=== PATIENT | male | born 1960 | race African-American/Black ===

== ENCOUNTER 2021-06-10 14:17 | Inpatient (IN) | payer OTHER ==
[2021-06-10 17:25] VITALS: BMI 30.7
[2021-06-10] MEDS ORDERED: MAG HYDROX/AL HYDROX/SIMETH 30 ML UNIT-DOSE CUP PO PRN (17:50)
[2021-06-10] MEDS ORDERED: ACETAMINOPHEN 325 MG TABLET (FP) PO PRN (17:50)
[2021-06-10] MEDS ORDERED: guaiFENesin 200 MG/10 ML 10 ML UNIT-DOSE CUPS PO PRN (17:50)
[2021-06-10] MEDS ORDERED: P-EPHED 60MG/TRIPROLIDI 2.5MG TABLET PO PRN (17:50)
[2021-06-10] MEDS ORDERED: IBUPROFEN 400 MG TABLET (FP) PO PRN (17:50)
[2021-06-10] MEDS ORDERED: MAGNESIUM HYDROX 2400MG/30ML ORAL SUSPENSION 30 ML CUP PO PRN (17:50)
[2021-06-10] MEDS ORDERED: LOPERAMIDE HCL 2 MG CAPSULE PO PRN (17:50)
[2021-06-10] MEDS ORDERED: MAGNESIUM CITRATE 300 ML BOTTLE PO PRN (17:50)
[2021-06-10] MEDS: THIAMINE HCL 100 MG TABLET (FP) PO SCH (21:10)
[2021-06-10] MEDS: MELATONIN 5 MG TABLETS PO SCH (21:15)
[2021-06-11] MEDS: NICOTINE 7 MG/24 HOURS TOPICAL PATCH TD SCH (09:55)
[2021-06-11] MEDS: PRENATAL VITAMINS W/ FOLIC ACID TABLET (FP) PO SCH (09:55)
[2021-06-11 10:38] LABS: CALCIUM 8.8 mg/dL (8.5-10.1)
[2021-06-11 10:42] LABS: CREATININE 1.1 mg/dL (0.55-1.3)
[2021-06-11 10:43] LABS: TOT PROT 6.6 g/dl (6.4-8.2)
[2021-06-11 10:47] LABS: HEMATOCRIT 38.3 % (35.4-49); HEMOGLOBIN 12.8 GM/dL (11.7-16.9); MCHC 33.3 g/dl (32.0-35.9); MEAN CELL VOLUME 89.8 fl (80-96); MEAN PLT VOLUME 8.7 fl (7.5-11.1); PLATELET COUNT 193 10^3/uL (134-434); RBC 4.27 M/mm3 (4.00-5.60); RDW 13.2 % (11.9-15.9)
[2021-06-11 10:49] LABS: BILIRUBIN,TOTAL 0.6 mg/dL (0.2-1)
[2021-06-11 12:14] LABS: SYPHILIS W/ RPR CONF NON-REACTIVE (NONREACTIVE)
[2021-06-11] MEDS: MELATONIN 5 MG TABLETS PO SCH (21:20)
[2021-06-11] MEDS: THIAMINE HCL 100 MG TABLET (FP) PO SCH (21:21)
[2021-06-12] MEDS ORDERED: TESTOSTERONE TD SCH (10:00)
[2021-06-12] MEDS: NICOTINE 7 MG/24 HOURS TOPICAL PATCH TD SCH (10:01)
[2021-06-12] MEDS: PRENATAL VITAMINS W/ FOLIC ACID TABLET (FP) PO SCH (10:01)
[2021-06-12] MEDS: THIAMINE HCL 100 MG TABLET (FP) PO SCH (21:23)
[2021-06-12] MEDS: MELATONIN 5 MG TABLETS PO SCH (21:24)
[2021-06-13] MEDS: NICOTINE 7 MG/24 HOURS TOPICAL PATCH TD SCH (09:49)
[2021-06-13] MEDS: PRENATAL VITAMINS W/ FOLIC ACID TABLET (FP) PO SCH (09:49)
[2021-06-13 15:52] LABS: PH,URINE 6.5 (5.0-8.0); URINE APPEARANCE CLEAR; URINE BILIRUBIN NEGATIVE (NEGATIVE); URINE COLOR YELLOW; URINE GLUCOSE (UA) NEGATIVE (NEGATIVE); URINE KETONE NEGATIVE (NEGATIVE); URINE LEUK ESTERASE NEGATIVE (NEGATIVE); URINE NITRITE NEGATIVE (NEGATIVE); URINE PROTEIN NEGATIVE (NEGATIVE)
[2021-06-13] MEDS: TESTOSTERONE TD SCH (16:01)
[2021-06-13] MEDS: hydrOXYzine PAMOATE 25 MG CAPSULE (FP) PO PRN (21:30)
[2021-06-13] MEDS: THIAMINE HCL 100 MG TABLET (FP) PO SCH (21:30)
[2021-06-13] MEDS: MELATONIN 5 MG TABLETS PO SCH (21:30)
[2021-06-14] MEDS: PRENATAL VITAMINS W/ FOLIC ACID TABLET (FP) PO SCH (09:57)
[2021-06-14] MEDS: NICOTINE 7 MG/24 HOURS TOPICAL PATCH TD SCH (09:58)
[2021-06-14] MEDS: TESTOSTERONE TD SCH (15:17)
[2021-06-14] MEDS: THIAMINE HCL 100 MG TABLET (FP) PO SCH (22:39)
[2021-06-14] MEDS: MELATONIN 5 MG TABLETS PO SCH (22:39)
[2021-06-15] MEDS: NICOTINE 7 MG/24 HOURS TOPICAL PATCH TD SCH (09:44)
[2021-06-15] MEDS: PRENATAL VITAMINS W/ FOLIC ACID TABLET (FP) PO SCH (09:44)
[2021-06-15] MEDS: TESTOSTERONE TD SCH (14:29)
[2021-06-15] MEDS: MELATONIN 5 MG TABLETS PO SCH (21:15)
[2021-06-15] MEDS: THIAMINE HCL 100 MG TABLET (FP) PO SCH (21:15)
[2021-06-15] MEDS: hydrOXYzine PAMOATE 25 MG CAPSULE (FP) PO PRN (21:15)
[2021-06-16] MEDS: PRENATAL VITAMINS W/ FOLIC ACID TABLET (FP) PO SCH (10:00)
[2021-06-16] MEDS: NICOTINE 7 MG/24 HOURS TOPICAL PATCH TD SCH (10:01)
[2021-06-16] MEDS: TESTOSTERONE TD SCH (10:01)
[2021-06-16] MEDS: THIAMINE HCL 100 MG TABLET (FP) PO SCH (21:54)
[2021-06-16] MEDS: MELATONIN 5 MG TABLETS PO SCH (21:54)
[2021-06-17] MEDS ORDERED: PT OWN MED DRAWER 7, Y5N ONE (09:03)
[2021-06-17] MEDS ORDERED: MASKS NR ONE (09:04)
[2021-06-17] MEDS: PRENATAL VITAMINS W/ FOLIC ACID TABLET (FP) PO SCH (10:08)
[2021-06-17] MEDS: TESTOSTERONE TD SCH (10:08)
[2021-06-17] MEDS: NICOTINE 7 MG/24 HOURS TOPICAL PATCH TD SCH (10:08)
[2021-06-17] MEDS: THIAMINE HCL 100 MG TABLET (FP) PO SCH (21:31)
[2021-06-17] MEDS: MELATONIN 5 MG TABLETS PO SCH (21:31)
[2021-06-18] MEDS: PRENATAL VITAMINS W/ FOLIC ACID TABLET (FP) PO SCH (10:03)
[2021-06-18] MEDS: NICOTINE 7 MG/24 HOURS TOPICAL PATCH TD SCH (10:03)
[2021-06-18] MEDS: TESTOSTERONE TD SCH (10:03)
[2021-06-18] MEDS: MELATONIN 5 MG TABLETS PO SCH (21:29)
[2021-06-18] MEDS: THIAMINE HCL 100 MG TABLET (FP) PO SCH (21:29)
[2021-06-19] MEDS: TESTOSTERONE TD SCH (09:28)
[2021-06-19] MEDS: PRENATAL VITAMINS W/ FOLIC ACID TABLET (FP) PO SCH (09:28)
[2021-06-19] MEDS: NICOTINE 10 MG CARTRIDGE (INHALER) IH PRN (09:29)
[2021-06-19] MEDS: NICOTINE 7 MG/24 HOURS TOPICAL PATCH TD SCH (09:30)
[2021-06-19] MEDS: THIAMINE HCL 100 MG TABLET (FP) PO SCH (22:20)
[2021-06-19] MEDS: MELATONIN 5 MG TABLETS PO SCH (22:20)
[2021-06-20] MEDS: PRENATAL VITAMINS W/ FOLIC ACID TABLET (FP) PO SCH (09:29)
[2021-06-20] MEDS: TESTOSTERONE TD SCH (09:29)
[2021-06-20] MEDS: NICOTINE 7 MG/24 HOURS TOPICAL PATCH TD SCH (09:29)
[2021-06-20] MEDS: MELATONIN 5 MG TABLETS PO SCH (21:04)
[2021-06-20] MEDS: THIAMINE HCL 100 MG TABLET (FP) PO SCH (21:04)
[2021-06-21] MEDS: NICOTINE 10 MG CARTRIDGE (INHALER) IH PRN (09:50)
[2021-06-21] MEDS: PRENATAL VITAMINS W/ FOLIC ACID TABLET (FP) PO SCH (09:50)
[2021-06-21] MEDS: TESTOSTERONE TD SCH (09:50)
[2021-06-21] MEDS: NICOTINE 7 MG/24 HOURS TOPICAL PATCH TD SCH (09:51)
[2021-06-21] MEDS: MELATONIN 5 MG TABLETS PO SCH (21:24)
[2021-06-21] MEDS: THIAMINE HCL 100 MG TABLET (FP) PO SCH (21:24)
[2021-06-22] MEDS: NICOTINE 7 MG/24 HOURS TOPICAL PATCH TD SCH (09:39)
[2021-06-22] MEDS: PRENATAL VITAMINS W/ FOLIC ACID TABLET (FP) PO SCH (09:39)
[2021-06-22] MEDS: TESTOSTERONE TD SCH (09:39)
[2021-06-22] MEDS: THIAMINE HCL 100 MG TABLET (FP) PO SCH (22:09)
[2021-06-22] MEDS: MELATONIN 5 MG TABLETS PO SCH (22:09)
[2021-06-23] MEDS: NICOTINE 10 MG CARTRIDGE (INHALER) IH PRN (08:51)
[2021-06-23] MEDS: TESTOSTERONE TD SCH (10:29)
[2021-06-23] MEDS: PRENATAL VITAMINS W/ FOLIC ACID TABLET (FP) PO SCH (10:29)
[2021-06-23] MEDS: NICOTINE 7 MG/24 HOURS TOPICAL PATCH TD SCH (10:30)
[2021-06-23] MEDS: MELATONIN 5 MG TABLETS PO SCH (21:41)
[2021-06-23] MEDS: THIAMINE HCL 100 MG TABLET (FP) PO SCH (21:41)
[2021-06-24] MEDS: NICOTINE 10 MG CARTRIDGE (INHALER) IH PRN (09:52)
[2021-06-24] MEDS: TESTOSTERONE TD SCH (09:52)
[2021-06-24] MEDS: PRENATAL VITAMINS W/ FOLIC ACID TABLET (FP) PO SCH (09:52)
[2021-06-24] MEDS: NICOTINE 7 MG/24 HOURS TOPICAL PATCH TD SCH (09:52)
[2021-06-24] MEDS: MELATONIN 5 MG TABLETS PO SCH (21:12)
[2021-06-24] MEDS ORDERED: PT OWN MED DRAWER 7, Y5N ONE (21:13)
[2021-06-24] MEDS: THIAMINE HCL 100 MG TABLET (FP) PO SCH (21:13)
[2021-06-24] MEDS: COLLOIDAL OATMEAL 1 BAR EACH TP PRN (21:14)
[2021-06-25] MEDS ORDERED: PT OWN MED DRAWER 7, Y5N ONE (08:54)
[2021-06-25] MEDS: TESTOSTERONE TD SCH (10:23)
[2021-06-25] MEDS: PRENATAL VITAMINS W/ FOLIC ACID TABLET (FP) PO SCH (10:24)
[2021-06-25] MEDS: NICOTINE 10 MG CARTRIDGE (INHALER) IH PRN (10:24)
[2021-06-25] MEDS: NICOTINE 7 MG/24 HOURS TOPICAL PATCH TD SCH (10:24)
[2021-06-25] MEDS: THIAMINE HCL 100 MG TABLET (FP) PO SCH (21:22)
[2021-06-25] MEDS: MELATONIN 5 MG TABLETS PO SCH (21:22)
[2021-06-26] MEDS: TESTOSTERONE TD SCH (09:45)
[2021-06-26] MEDS: PRENATAL VITAMINS W/ FOLIC ACID TABLET (FP) PO SCH (09:45)
[2021-06-26] MEDS: NICOTINE 7 MG/24 HOURS TOPICAL PATCH TD SCH (09:45)
[2021-06-26] MEDS: NICOTINE 10 MG CARTRIDGE (INHALER) IH PRN (09:46)
[2021-06-26] MEDS: MELATONIN 5 MG TABLETS PO SCH (21:41)
[2021-06-26] MEDS: THIAMINE HCL 100 MG TABLET (FP) PO SCH (21:42)
[2021-06-27] MEDS: NICOTINE 7 MG/24 HOURS TOPICAL PATCH TD SCH (10:01)
[2021-06-27] MEDS: TESTOSTERONE TD SCH (10:01)
[2021-06-27] MEDS: PRENATAL VITAMINS W/ FOLIC ACID TABLET (FP) PO SCH (10:01)
[2021-06-27] MEDS: PATIENT'S OWN MEDICATION (NON-FORMULARY) (Meloxicam [Meloxicam] 7.5 MG Tablet) PO PRN (10:02)
[2021-06-27] MEDS ORDERED: PT OWN MED DRAWER 7, Y5N ONE (10:03)
[2021-06-27] MEDS: THIAMINE HCL 100 MG TABLET (FP) PO SCH (21:25)
[2021-06-27] MEDS: MELATONIN 5 MG TABLETS PO SCH (21:25)
[2021-06-28] MEDS: PATIENT'S OWN MEDICATION (NON-FORMULARY) (Meloxicam [Meloxicam] 7.5 MG Tablet) PO PRN (10:03)
[2021-06-28] MEDS: PRENATAL VITAMINS W/ FOLIC ACID TABLET (FP) PO SCH (10:03)
[2021-06-28] MEDS: NICOTINE 7 MG/24 HOURS TOPICAL PATCH TD SCH (10:03)
[2021-06-28] MEDS: TESTOSTERONE TD SCH (10:03)
[2021-06-28] MEDS: THIAMINE HCL 100 MG TABLET (FP) PO SCH (22:05)
[2021-06-28] MEDS: MELATONIN 5 MG TABLETS PO SCH (22:05)
[2021-06-29] MEDS: TESTOSTERONE TD SCH (09:34)
[2021-06-29] MEDS: NICOTINE 7 MG/24 HOURS TOPICAL PATCH TD SCH (09:34)
[2021-06-29] MEDS: PRENATAL VITAMINS W/ FOLIC ACID TABLET (FP) PO SCH (09:34)
[2021-06-29] MEDS: PATIENT'S OWN MEDICATION (NON-FORMULARY) (Meloxicam [Meloxicam] 7.5 MG Tablet) PO PRN (09:35)
[2021-06-29] MEDS: THIAMINE HCL 100 MG TABLET (FP) PO SCH (21:27)
[2021-06-29] MEDS: MELATONIN 5 MG TABLETS PO SCH (21:27)
[2021-06-29] MEDS: NICOTINE 10 MG CARTRIDGE (INHALER) IH PRN (21:30)
[2021-06-30] MEDS: NICOTINE 7 MG/24 HOURS TOPICAL PATCH TD SCH (09:53)
[2021-06-30] MEDS: PRENATAL VITAMINS W/ FOLIC ACID TABLET (FP) PO SCH (09:53)
[2021-06-30] MEDS: TESTOSTERONE TD SCH (09:53)
[2021-06-30] MEDS: PATIENT'S OWN MEDICATION (NON-FORMULARY) (Meloxicam [Meloxicam] 7.5 MG Tablet) PO PRN (09:54)
[2021-06-30] MEDS: LIDOCAINE 5% TOPICAL PATCH TP SCH (10:52)
[2021-06-30] MEDS: THIAMINE HCL 100 MG TABLET (FP) PO SCH (21:31)
[2021-06-30] MEDS: MELATONIN 5 MG TABLETS PO SCH (21:31)
[2021-06-30] MEDS: NICOTINE 10 MG CARTRIDGE (INHALER) IH PRN (21:33)
[2021-06-30] MEDS: LIDOCAINE PATCH REMOVAL MC SCH (21:33)
[2021-07-01] MEDS: NICOTINE 7 MG/24 HOURS TOPICAL PATCH TD SCH (09:51)
[2021-07-01] MEDS: LIDOCAINE 5% TOPICAL PATCH TP SCH (09:51)
[2021-07-01] MEDS: PRENATAL VITAMINS W/ FOLIC ACID TABLET (FP) PO SCH (09:51)
[2021-07-01] MEDS: PATIENT'S OWN MEDICATION (NON-FORMULARY) (Meloxicam [Meloxicam] 7.5 MG Tablet) PO PRN (09:52)
[2021-07-01] MEDS: TESTOSTERONE TD SCH (09:52)
[2021-07-01] MEDS: MELATONIN 5 MG TABLETS PO SCH (21:38)
[2021-07-01] MEDS: THIAMINE HCL 100 MG TABLET (FP) PO SCH (21:38)
[2021-07-01] MEDS: LIDOCAINE PATCH REMOVAL MC SCH (21:39)
[2021-07-02] MEDS: TESTOSTERONE TD SCH (09:29)
[2021-07-02] MEDS: NICOTINE 7 MG/24 HOURS TOPICAL PATCH TD SCH (09:29)
[2021-07-02] MEDS: PRENATAL VITAMINS W/ FOLIC ACID TABLET (FP) PO SCH (09:29)
[2021-07-02] MEDS: LIDOCAINE 5% TOPICAL PATCH TP SCH (09:29)
[2021-07-02] MEDS ORDERED: PT OWN MED DRAWER 7, Y5N ONE (09:30)
[2021-07-02] MEDS: PATIENT'S OWN MEDICATION (NON-FORMULARY) (Meloxicam [Meloxicam] 7.5 MG Tablet) PO PRN (09:30)
[2021-07-02] MEDS: THIAMINE HCL 100 MG TABLET (FP) PO SCH (21:17)
[2021-07-02] MEDS: LIDOCAINE PATCH REMOVAL MC SCH (21:17)
[2021-07-02] MEDS: MELATONIN 5 MG TABLETS PO SCH (21:17)
[2021-07-03] MEDS: PRENATAL VITAMINS W/ FOLIC ACID TABLET (FP) PO SCH (09:41)
[2021-07-03] MEDS: PATIENT'S OWN MEDICATION (NON-FORMULARY) (Meloxicam [Meloxicam] 7.5 MG Tablet) PO PRN (09:41)
[2021-07-03] MEDS: TESTOSTERONE TD SCH (09:41)
[2021-07-03] MEDS: NICOTINE 10 MG CARTRIDGE (INHALER) IH PRN (09:41)
[2021-07-03] MEDS: LIDOCAINE 5% TOPICAL PATCH TP SCH (09:42)
[2021-07-03] MEDS: NICOTINE 7 MG/24 HOURS TOPICAL PATCH TD SCH (09:42)
[2021-07-03] MEDS: THIAMINE HCL 100 MG TABLET (FP) PO SCH (21:31)
[2021-07-03] MEDS: MELATONIN 5 MG TABLETS PO SCH (21:31)
[2021-07-03] MEDS: LIDOCAINE PATCH REMOVAL MC SCH (21:31)
[2021-07-04] MEDS: LIDOCAINE 5% TOPICAL PATCH TP SCH (09:16)
[2021-07-04] MEDS: PATIENT'S OWN MEDICATION (NON-FORMULARY) (Meloxicam [Meloxicam] 7.5 MG Tablet) PO PRN (09:16)
[2021-07-04] MEDS: NICOTINE 7 MG/24 HOURS TOPICAL PATCH TD SCH (09:16)
[2021-07-04] MEDS: PRENATAL VITAMINS W/ FOLIC ACID TABLET (FP) PO SCH (09:16)
[2021-07-04] MEDS: TESTOSTERONE TD SCH (09:16)
[2021-07-04] MEDS: COLLOIDAL OATMEAL 1 BAR EACH TP PRN (10:39)
[2021-07-04] MEDS: MELATONIN 5 MG TABLETS PO SCH (21:29)
[2021-07-04] MEDS: THIAMINE HCL 100 MG TABLET (FP) PO SCH (21:29)
[2021-07-04] MEDS: LIDOCAINE PATCH REMOVAL MC SCH (21:30)
[2021-07-05 06:46] VITALS: TEMP 97.1
[2021-07-05] MEDS: PATIENT'S OWN MEDICATION (NON-FORMULARY) (Meloxicam [Meloxicam] 7.5 MG Tablet) PO PRN (09:30)
[2021-07-05] MEDS: TESTOSTERONE TD SCH (09:30)
[2021-07-05] MEDS: LIDOCAINE 5% TOPICAL PATCH TP SCH (09:30)
[2021-07-05] MEDS: NICOTINE 7 MG/24 HOURS TOPICAL PATCH TD SCH (09:30)
[2021-07-05] MEDS: PRENATAL VITAMINS W/ FOLIC ACID TABLET (FP) PO SCH (09:30)
[2021-07-05] MEDS: NICOTINE 10 MG CARTRIDGE (INHALER) IH PRN (11:35)
[2021-07-05] MEDS: THIAMINE HCL 100 MG TABLET (FP) PO SCH (21:13)
[2021-07-05] MEDS: MELATONIN 5 MG TABLETS PO SCH (21:13)
[2021-07-05] MEDS: LIDOCAINE PATCH REMOVAL MC SCH (21:13)
[2021-07-06 06:49] VITALS: BP 124/76; PULSE 78
[2021-07-06] MEDS: PRENATAL VITAMINS W/ FOLIC ACID TABLET (FP) PO SCH (08:59)
[2021-07-06] MEDS: LIDOCAINE 5% TOPICAL PATCH TP SCH (09:00)
[2021-07-06] MEDS: NICOTINE 7 MG/24 HOURS TOPICAL PATCH TD SCH (09:00)
[2021-07-06] MEDS: TESTOSTERONE TD SCH (09:00)
== END 2021-07-06 09:11 | disposition home or self-care (01) | DRG 772 ==
LOC: YASAS 14:17 → Y3E 19:04
PROVIDERS: ADMIT Allergy & Immunology; ATTEND Allergy & Immunology
PROC: HZ42ZZZ Group Counseling for Substance Abuse Treatment, Cognitive-Behavioral (ICD-10-PCS; principal; 2021-06-10)
DX: F10.20 Alcohol dependence, uncomplicated (principal); F14.20 Cocaine dependence, uncomplicated; F17.210 Nicotine dependence, cigarettes, uncomplicated; F32.A Depression, unspecified; F19.24 Other psychoactive substance dependence with psychoactive substance-induced mood disorder; M54.59 Other low back pain; G89.29 Other chronic pain
CPT/HCPCS: 36415; 80053; 81003; 85027; 86780; 86803; C9803; U0003; U0005